=== PATIENT | female | born 1960 | race American Indian/Alaskan Native ===

== ENCOUNTER 2017-04-30 09:14 | Outpatient (CLI) | payer BC ==
--- NOTE | 2017-04-30 13:05 | Cat Scan Report ---
CT ABDOMEN AND PELVIS WITH CONTRAST: 04/30/17 09:14:00 CLINICAL: Bloating and right lower quadrant abdominal pain. COMPARISON: None. TECHNIQUE: Volumetric acquisition and 1.25 millimeter scan reconstructions after the uneventful intravenous injection of 100 cc Omnipaque 300. Consent was obtained prior to the administration of contrast. Oral contrast was also given. FINDINGS: Abdomen: Lung bases are clear.Normal liver and bile ducts status post cholecystectomy. Small hiatal hernia and status post gastric stapling procedure. Normal appearance of the postop stomach. Normal duodenum, pancreas and spleen. The adrenal glands and kidneys are normal. The renal collecting systems and ureters are nondilated. Nonspecific dilatation of a few small bowel loops in the mid small bowel. The small bowel is otherwise normal. Normal ascending, transverse and descending colon. Status post appendectomy with a surgical clip at the base of the cecum. No mass, lymphadenopathy or ascites.No pneumoperitoneum. Pelvis: Normal urinary bladder.The uterus is small with calcifications suggestive of small calcified fibroids. Normal left ovary. A 3.2 cm cyst of the right ovary. No adnexal mass or free fluid. Bilateral tubal ligation clips. Normal rectum and sigmoid colon.. Bone windows demonstrate no bone lesion. IMPRESSION:1. Small hiatal hernia. 2. Status post gastric stapling and normal appearance of the postop stomach. 3. Mild nonspecific dilatation of mid small bowel loops. 4. Status post cholecystectomy and appendectomy. 5. Suspect small calcified uterine fibroids. 6. A 3.2 cm right ovarian cyst.
== END 2017-04-30 09:15 | disposition home or self-care (01) ==
LOC: SPVIMAG 09:14
PROVIDERS: ATTEND Internal Medicine Gastroenterology
DX: N83.201 Unspecified ovarian cyst, right side (principal); K44.9 Diaphragmatic hernia without obstruction or gangrene; D25.9 Leiomyoma of uterus, unspecified; R14.0 Abdominal distension (gaseous); K59.09 Other constipation; Z90.49 Acquired absence of other specified parts of digestive tract; Z90.89 Acquired absence of other organs
CPT/HCPCS: 74177; Q9967